=== PATIENT | female | born 1995 | race Caucasian/White ===

== ENCOUNTER 2024-01-21 04:45 | Emergency (ER) | payer BC ==
--- NOTE | 2024-01-21 05:00 | ED Physician Documentation ---
PD HPI ABD PAIN - Stated complaint Stated Complaint: ABD PX - Chief complaint Chief Complaint: Abd Pain - History obtained from History obtained from: Patient - History of Present Illness Timing - onset: Yesterday (onset about 10 am yterday with cramping mid to upper abd pain that undulated until evening when more consistent. Has been present since then but worse about 3 am, awakening her and more intense. Some nausea, no vomiting. Pain more with walking. Less appetite.) Timing - details: Gradual onset, Still present, Waxing and waning Quality: Cramping, Aching Location: RUQ, Epigastric, Periumbilical Radiation: Lower back. No: Right flank Worsened by: Eating Associated symptoms: Nausea, Loss of appetite. No: Fever, Vomiting, Diarrhea, Dysuria, Hematuria, Vaginal dc Similar symptoms before: Has not had sx before Review of Systems Constitutional: denies: Fever, Chills, Myalgias Nose: denies: Rhinorrhea / runny nose, Congestion Throat: denies: Sore throat Respiratory: denies: Cough : denies: Dysuria, Frequency, Discharge PD PAST MEDICAL HISTORY - Past Medical History Past Medical History: No - Past Surgical History Past Surgical History: No - Present Medications Home Medications: Ambulatory Orders Medication Instructions Recorded Confirmed No Known Home Medications 01/21/24 01/21/24 - Allergies Allergies/Adverse Reactions: Allergies Allergy/AdvReac Type Severity Reaction Status Date / Time No Known Drug Allergies Allergy Verified 01/21/24 04:49 - Social History Does the pt smoke?: No Smoking Status: Never smoker Does the pt drink ETOH?: No Does the pt have substance abuse?: No - Immunizations Immunizations are current?: Yes - POLST Patient has POLST: No PD ED PE NORMAL - Vitals Vital signs reviewed: Yes - General General: Alert and oriented X 3, Well developed/nourished, Other (appears in pain) - Neck Neck: Supple, no meningeal sign, No adenopathy - Cardiac Cardiac: RRR, No murmur - Respiratory Respiratory: No respiratory distress, Clear bilaterally - Abdomen Abdomen: Normal bowel sounds, Soft, Non distended, No organomegaly, Other (tender periumbilical and above. Some tender RUQ and epigastric as well. No percussion nor rebound tenderness at this time aside.) Results - Vitals Vitals: Vital Signs - 24 hr 01/21/24 01/21/24 04:50 06:48 Temperature 36.5 C Heart Rate 66 64 Respiratory 18 18 Rate Blood Pressure 141/99 H 128/95 H O2 Saturation 99 96 Oxygen O2 Source Room air - Labs Labs: Laboratory Tests 01/21/24 01/21/24 01/21/24 05:05 05:10 05:10 WBC 8.0 RBC 5.07 Hgb 15.4 Hct 45.0 MCV 88.8 MCH 30.4 MCHC 34.2 RDW 11.9 L Plt Count 242 MPV 10.9 H Neut # (Auto) 4.3 Lymph # (Auto) 2.5 [place] # (Auto) 0.7 Eos # (Auto) 0.4 Baso # (Auto) 0.1 Absolute Nucleated RBC 0.00 Nucleated RBC % 0.0 Sodium 135 Potassium 3.5 Chloride 101 Carbon Dioxide 27 Anion Gap 7.0 BUN 14 Creatinine 0.9 Estimated GFR (MDRD) 75 L Glucose 97 Calcium 9.9 Total Bilirubin 1.1 H AST 20 ALT 15 Alkaline Phosphatase 69 Total Protein 7.5 Albumin 4.9 Globulin 2.6 Albumin/Globulin Ratio 1.9 Lipase 18 Urine Color YELLOW Urine Clarity CLEAR Urine pH 6.0 Ur Specific [place] <=1.005 Urine Protein NEGATIVE Urine Glucose (UA) NEGATIVE Urine Ketones NEGATIVE Urine Occult Blood NEGATIVE Urine Nitrite NEGATIVE Urine Bilirubin NEGATIVE Urine Urobilinogen 0.2 (NORMAL) Ur Leukocyte Esterase NEGATIVE Ur Microscopic Review NOT INDICATED Urine Culture Comments NOT INDICATED Urine HCG, Qual NEGATIVE PD Medical Decision Making - ED course Complexity details: reviewed results, considered differential (Her tenderness is mostly periumbilical and above that. Not exactly in the gallbladder area per se but it does incorporate there. Not too much tender in the appendix area though the time course would be appropriate for appendicitis.), d/w patient ED course: CT result pending at time of shift change. Care to Dr. Maciel. Departure - Departure Forms: PCP List
[2024-01-21] MEDS ORDERED: iohexoL-300 100 ML VIAL ONE (05:19)
[2024-01-21] MEDS ORDERED: KETOROLAC 30 MG/ML VIAL ONE (05:20)
[2024-01-21] MEDS: ONDANSETRON 4 MG/2 ML VIAL IVP STA (05:25)
[2024-01-21] MEDS: KETOROLAC 15 MG/ML VIAL IVP STA (05:26)
[2024-01-21] MEDS: SODIUM CHLORIDE 0.9% 1,000 ML IV STA (05:26)
[2024-01-21] MEDS: HYDROmorphone 1 MG/ML CARPUJECT IVP STA (05:26)
[2024-01-21 06:05] LABS: BASOPHILS # (AUTO) 0.1 10^3/uL (0.0-0.1); BASOPHILS % (AUTO) 0.6 %; EOSINOPHILS # (AUTO) 0.4 10^3/uL (0.0-0.7); EOSINOPHILS % (AUTO) 5.5 %; HGB - HEMOGLOBIN 15.4 g/dL (12.0-16.0); LYMPHOCYTES # (AUTO) 2.5 10^3/uL (1.5-3.5); LYMPHOCYTES % (AUTO) 30.7 %; MEAN CORPUSCULAR HEMOGLOBIN 30.4 pg (27.0-31.0); MEAN CORPUSCULAR HGB CONC 34.2 g/dL (32.0-36.0); MEAN CORPUSCULAR VOLUME 88.8 fL (81.0-99.0); MEAN PLATELET VOLUME 10.9 fL (7.9-10.8); MONOCYTES # (AUTO) 0.7 10^3/uL (0.0-1.0); MONOCYTES % (AUTO) 9.2 %; NEUTROPHILS # (AUTO) 4.3 10^3/uL (1.5-6.6); NEUTROPHILS % (AUTO) 53.9 %; PLT - PLATELET COUNT 242 10^3/uL (130-450); RED BLOOD COUNT 5.07 10^6/uL (4.20-5.40); RED CELL DISTRIBUTION WIDTH 11.9 % (12.0-15.0)
[2024-01-21 06:11] LABS: ALBUMIN 4.9 g/dL (3.2-5.5); ALBUMIN/GLOBULIN RATIO 1.9 (1.0-2.2); BILIRUBIN,TOTAL 1.1 mg/dL (0.2-1.0); CALCIUM 9.9 mg/dL (8.5-10.3); CREATININE 0.9 mg/dL (0.6-1.3); POTASSIUM 3.5 mmol/L (3.5-4.5); TOTAL PROTEIN 7.5 g/dL (6.4-8.9)
[2024-01-21 06:11] LABS: BILIRUBIN,URINE NEGATIVE (NEGATIVE); GLUCOSE, URINE (UA) NEGATIVE (NEGATIVE); KETONES,URINE (UA) NEGATIVE (NEGATIVE); LEUKOCYTE ESTERASE, URINE NEGATIVE (NEGATIVE); NITRITE,URINE NEGATIVE (NEGATIVE); OCCULT BLOOD,URINE NEGATIVE (NEGATIVE); PROTEIN,URINE NEGATIVE (NEGATIVE); UROBILINOGEN,URINE 0.2 (NORMAL) E.U./dL (NORMAL)
[2024-01-21 06:16] LABS: CLARITY,URINE CLEAR (CLEAR); HCG UR QUAL NEGATIVE
[2024-01-21] MEDS: iohexoL-300 100 ML VIAL IVP ONE (06:42)
--- NOTE | 2024-01-21 08:42 | ED Physician Documentation ---
ED Addendum - Addendum Addendum: 01/21/24 08:40 The patient was signed out to me at change of shift, pending CT results after presenting to the emergency department fairly generalized abdominal pain. Her labs were unremarkable including normal white blood cell count and normal pancreatic labs. Her CT showed clear visualization of both gallbladder and appendix, which were normal. There was some question of a heterogenous appearance of a portion of the pancreas which was recommended to be correlated with laboratory studies by radiologist. Given the patient's pain was not really centered over the pancreas and given that her labs were normal, I did not suspect pancreatitis at this time. The patient has been informed of the nonspecific appearance of her pancreas and that she should schedule follow-up with her primary doctor for any ongoing pain or concerns. The patient is stable for discharge home. We have discussed the usual indications for return. Final impression: 1. Abdominal pain Disposition: Discharged home in stable condition.
[2024-01-21 09:18] VITALS: BP 141/86; O2SAT 96
--- NOTE | 2024-01-21 10:26 | CT Report ---
PROCEDURE: Abdomen/Pelvis W INDICATIONS: Abdominal pain, acute, nonlocalized CONTRAST: 100 ml omni 300 TECHNIQUE: After the administration of intravenous contrast, a CT scan of the abdomen and pelvis was performed. Images were recorded and evaluated at appropriate window settings. Reformats: coronal and sagittal. F or radiation dose reduction, the following was used: automated exposure control, adjustment of mA and /or kV according to patient size. COMPARISON: None. FINDINGS: Image quality: Diagnostic. Lower chest: Unremarkable. Liver: No solid mass. Gallbladder: No radiopaque stones or wall thickening. Biliary tree: No intrahepatic or extrahepatic dilation, accounting for age. Spleen: No splenomegaly. Pancreas: No pancreatic ductal dilation. Slight prominence of pancreatic head region with mild hetero geneous enhancement. No peripancreatic fat stranding or fluid is seen. Adrenals: No adrenal nodule. Kidneys and ureters: No hydronephrosis. No renal cystic lesion which requires follow up. No solid mas s. Stomach, bowel and peritoneum: There is no bowel obstruction. No gastric or small bowel wall thickeni ng. Fecal stasis in the colon is seen. Appendix is visualized in right lower quadrant and is within n ormal limits. Questionable wall thickening involving sigmoid colon is seen. No abscess collection. No free fluid of free air. Lymph nodes: No central or retroperitoneal adenopathy. Vessels: No infrarenal aortic aneurysm. Patent portal vein. PELVIS Reproductive organs: There is suggestion of a 2 cm collapsing left ovarian cyst. Uterus and right ova ry are within normal limits.. Bladder: No abnormal wall thickening, accounting for underdistention. Pelvic lymph nodes: No pelvic adenopathy by size criteria. Bones: No aggressive osseous abnormality. Other: No significant ventral or inguinal hernia. IMPRESSION: 1. Questionable sigmoid colon wall thickening which may represent low-grade colitis versus under dist ention. No bowel obstruction or other area of abnormal bowel wall thickening. Normal appendix. No anahi e fluid of free air. Mild to moderate constipation. 2. Likely collapsing left ovarian cyst as above. 3. Prominent and slightly heterogeneous appearing pancreatic head without significant peripancreatic inflammatory changes. Correlation with pancreatic enzyme levels is recommended. Findings are concordant with preliminary interpretation provided by [facility]. Reviewed by: Jeremy Najera MD on 01/21/2024 10:25 AM PDT Approved by: Jeremy Najera MD on 01/21/2024 10:25 AM PDT Station ID: [id number]
== END 2024-01-21 09:08 | disposition home or self-care (01) ==
LOC: ED 04:45
DX: R10.11 Right upper quadrant pain (principal); R10.13 Epigastric pain; R10.33 Periumbilical pain
CPT/HCPCS: 36415; 74177; 80053; 81003; 81025; 83690; 85025; 96374; 96375; 99283; 99284; J1170; Q9967; 81001; 87086